=== PATIENT | female | born 1940 | race Caucasian/White ===

== ENCOUNTER 2017-03-08 06:17 | Day surgery (SDC) | payer MEDICARE ==
--- NOTE | 2017-03-04 16:38 | Pre-Procedure Note/Attestation ---
Pre-Procedure Note/Attestation Complete Prior to Procedure Planned Procedure: left Procedure Narrative: 1. CATARACT EXTRACTION WITH PHACO AND PC IOL IMPLANTATION, LEFT EYE. Indications for Procedure Pre-Operative Diagnosis: 1. CATARACT , LEFT EYE Attestation I attest that I discussed the nature of the procedure; its benefits; risks and complications; and alternatives (and the risks and benefits of such alternatives ), prior to the procedure, with the patient (or the patient's legal inventory representative). I attest that, if there was a reasonable possibility of needing a blood transfusion, the patient (or the patient's legal inventory representative) was given the [facility] standardized written summary, pursuant to the Mukesh Isaiah Blood Safety Act ([place] Health and Safety Code # 1645, as amended). I attest that I re-evaluated the patient just prior to the surgery and that there has been no change in the patient's H&P, except as documented below: DINESH RANKIN Mar 04, 2017 16:38
[2017-03-08] VITALS (8 sets, daily range): BP systolic 139–168; BP diastolic 83–99
[~2017-03-08] VITALS: Ht 144.8 cm; Wt 61.2 kg
[~2017-03-08 06:17] MED LIST: Akten 3.5% 1ml Btl ONE; Ketorolac Tromethamine Opth 5ml Soln ONE; Phenylephrine 10% Opth Soln 5ml ONE; Tropicamide 1% Opth 15ml Soln ONE; Vigamox Opth Soln 3ml ONE; acetaZOLAMIDE 125mg tab ORAL ONE
[2017-03-08] MEDS: Tropicamide 1% Opth 15ml Soln LEFT EYE SCH ×3 (06:49→07:07)
[2017-03-08] MEDS: Vigamox Opth Soln 3ml LEFT EYE SCH ×3 (06:49→07:07)
[2017-03-08] MEDS: Akten 3.5% 1ml Btl LEFT EYE SCH ×3 (06:49→07:07)
[2017-03-08] MEDS: Phenylephrine 10% Opth Soln 5ml LEFT EYE SCH ×3 (06:49→07:07)
[2017-03-08] MEDS: Ketorolac Tromethamine Opth 5ml Soln LEFT EYE SCH ×3 (06:50→07:07)
[2017-03-08] MEDS ORDERED: NKM (06:57)
[2017-03-08] MEDS ORDERED: NS Irrig 1000ml ONE (07:00)
[2017-03-08] MEDS ORDERED: Sterile Water Irrig 1000ml IRRIG ONE (07:00)
[2017-03-08] MEDS ORDERED: Dexamethasone 4mg/ml vial ONE (07:06)
[2017-03-08] MEDS ORDERED: Tetracaine 0.5% Opth 4ml Soln ONE (07:06)
[2017-03-08] MEDS ORDERED: Lidocaine 1% MPF 10mg/ml 5ml ONE ×2 (07:06→08:00)
[2017-03-08] MEDS ORDERED: BSS 500ml btl ONE (07:06)
[2017-03-08] MEDS ORDERED: Povidone-Iodine 5% opth solution ONE (07:07)
[2017-03-08] MEDS ORDERED: Carbachol 0.01% Op Soln 1.5ml vial ONE (07:07)
[2017-03-08] MEDS ORDERED: BSS 15ml BTL ONE (07:07)
[2017-03-08] MEDS ORDERED: EPINEPHrine 1mg/1ml Amp ONE (07:07)
[2017-03-08] MEDS ORDERED: Sodium Hyaluronate 10 mg/ml 0.85ml ONE (07:08)
[2017-03-08] MEDS ORDERED: LR 1000ml ONE (08:00)
[2017-03-08] MEDS ORDERED: DiphenhydrAMINE 50mg/ml Inj ONE (08:08)
--- NOTE | 2017-03-08 08:27 | Anethesia Preoperative Eval ---
Anesthesia Pre-op PMH/ROS General Date of Evaluation: Mar 08, 2017 Anesthesiologist: Deshawn ASA Score: ASA 2 Mallampati Score Class I : Soft palate, uvula, fauces, pillars visible Class II: Soft palate, uvula, fauces visible Class III: Soft palate, base of uvula visible Class IV: Only hard plate visible Mallampati Classification: Class II Surgeon: Chastity Diagnosis: Left cataract Surgical Procedure: Left cataract extraction with IOL Anesthesia History: none Family History: no anesthesia problems Allergies: Coded Allergies: PENICILLINS (Verified Allergy, Mild, 03/08/17) dizziness, vision turned black,fainting Medications: see eMAR Past Medical History Cardiovascular: Denies: HTN, CAD, CA, valve dz, arrhythmia, other Pulmonary: Denies: asthma, COPD, [place], other Gastrointestinal/Genitourinary: Reports: GERD, Denies: CRI, ESRD, other Endocrine: Denies: DM, hypothyroidism, steroids, other HEENT: Reports: cataract (L), Denies: cataract (R), glaucoma, [place] (L), [place] (R), other Hematology/Immune: Denies: anemia, DVT, bleeding disorder, other Musculoskeletal/Integumentary: Reports: OA, Denies: RA, DJD, DDD, edema, other PSxH Narrative: right breast cystectomy, ANDRES Anesthesia Pre-op Phys. Exam Physician Exam Last Vital Signs Date Time Temp Pulse Resp B/P (MAP) Pulse Ox O2 Delivery O2 Flow Rate FiO2 03/08/17 07:01 97.7 82 20 149/83 98 Room Air Constitutional: NAD Cardiovascular: RRR Respiratory: CTA Airway Exam Mallampati Score: Class II MO: full ROM: full Anesthesia Pre-op A/P Labs see chart Studies Pre-op Studies: EKG - sr Risk Assessment & Plan Assessment: ASA II Plan: MAC Status Change Before Surgery: No Pre-Antibiotics Drug: N/A LEONIDAS DELCID M.D. Mar 08, 2017 08:27
[2017-03-08] MEDS ORDERED: LR 1000ml 1,000 ML IVLG SCH (08:28)
--- NOTE | 2017-03-08 08:28 | Immediate Post-Op Evaluation ---
Immediate Post-Op Evalulation Immediate Post-Op Evalulation Procedure: Left cataract extraction with IOL Date of Evaluation: Mar 08, 2017 Time of Evaluation: 08:59 IV Fluids: 200 Blood Products: 0 Estimated Blood Loss: 0 Urinary Output: 0 Blood Pressure Systolic: 168 Blood Pressure Diastolic: 99 Pulse Rate: 85 Respiratory Rate: 16 O2 Sat by Pulse Oximetry: 99 Temperature (Fahrenheit): 98.1 Pain Score (1-10): 0 Nausea: No Vomiting: No Complications 0 Patient Status: awake, reacts, patent, none Hydration Status: adequate Drug: N/A LEONIDAS DELCID M.D. Mar 08, 2017 08:28
--- NOTE | 2017-03-08 08:28 | 48 Hour Post Anesthesia Eval ---
Post Anesthesia Evaluation Procedure: Left cataract extraction with IOL Date of Evaluation: Mar 08, 2017 Airway: patent Nausea: No Vomiting: No Pain Intensity: 0 Hydration Status: adequate Cardiopulmonary Status: at baseline Mental Status/LOC: patient returned to baseline Post-Anesthesia Complications: 0 Follow-up care needed: ready to discharge LEONIDAS DELCID M.D. Mar 08, 2017 08:28
[2017-03-08] MEDS ORDERED: DiphenhydrAMINE 50mg/ml Inj IVP PRN (08:30)
--- NOTE | 2017-03-08 08:59 | Discharge Summary ---
Discharge Summary Discharge Summary Discharge Summary DATE OF ADMISSION: 03/08/2017 DATE OF DISCHARGE: 03/08/2017 REASON FOR HOSPITALIZATION: Cataract, left eye SURGERY PERFORMED: Cataract extraction with phaco and PC IOL implantation, left eye CONDITION IN THE HOSPITAL:The patient tolerated the surgery without complications. DISCHARGE CONDITION: The patient was stable at discharge. DISCHARGE MEDICATIONS: 1. Vigamox eye drops one drop q.i.d, OS 2. Prednisolone one drop q.i.d, OS 3. Prolenza, qd, left eye POSTOPERATIVE ORDERS: The patient has to rest at home. No bending, No lifting, No watching Television tonight. POSTOPERATIVE FOLLOW UP: The patient will be followed in my office tomorrow morning at 7 o'clock. DINESH RANKIN Mar 08, 2017 08:59
--- NOTE | 2017-03-08 09:01 | Brief Operative Note ---
Immediate Post Operative Note Operative Note Chief Complaint: Blurry left eye, difficulty drivindg and reading Pre-op Diagnosis: 1. CATARACT , LEFT EYE Procedure: Cataract extraction with phaco and PC IOL implantation, left eye Post-op Diagnosis: same as pre-op Surgeon: Dinesh Haywood MD. Manager Patient: None Additional Surgeons: None Anesthesiologist: Dr. Hess Anesthesia: MAC Specimen: none Complications: none Condition: stable Fluids: 500ml Estimated Blood Loss: none Drains: none Implant(s) used?: Yes - Monofocal PC IOL implanted in the left eye without complication DINESH HAYWOOD Mar 08, 2017 09:01
--- NOTE | 2017-03-09 00:47 | Operative Note - Dictated ---
DATE OF OPERATION: 03/08/2017 FACILITY: [facility]. SURGEON: Jose Haywood M.D. MANAGER CONTENT: None. ANESTHESIOLOGIST: Dr. Hess. ANESTHESIA: Monitored anesthesia care (MAC). PREOPERATIVE DIAGNOSIS: Cataract, left eye. POSTOPERATIVE DIAGNOSIS: Cataract, left eye. SURGERY PERFORMED: Cataract extraction and phacoemulsification of posterior chamber intraocular lens implantation in the left eye. INDICATION FOR SURGERY: The patient is a 76-year-old lady with history of hypertension, hypercholesterolemia, interstitial lung fibrosis, anemia, osteopenia, thyroid neoplasm, and diabetes mellitus. The patient is stating she is allergic to penicillin. The patient is not a smoker and does not drink. The patient is complaining of blurry vision in the left eye. On examination of the left eye, the cornea is clear. Anterior chamber is clean and quiet. Pupillary reflex is normal. There is no RAPD. There is 3+ nuclear sclerosis and 2+ cortical cataract. Funduscopy shows normal optic disc, normal macula, and periphery retina is flat. To improve her vision in the left eye, the cataract has to be removed and posterior chamber intraocular lens has to be implanted. INFORMED CONSENT: The nature of the surgery, risks, benefits, alternatives, and potential complications were explained all in detail to the patient. The potential complications including, but not limited to bleeding, infection, posterior capsular rupture, lens subluxation, flat anterior chamber, iris prolapse, uveitis, corneal edema, macular edema, endophthalmitis, retinal detachment, loss of vision, and even loss of the eye were all explained in detail to the patient, who voiced understanding and accepted all the complications. All the complications were explained to the patient in her language, Farsi. The alternatives including accommodating lenses, multifocal lenses, toric lenses, and conventional cataract surgery with limbal relaxing incision (LRI) for treatment of astigmatism were all explained in detail to the patient, who voiced understanding. The patient elected to have only conventional cataract surgery with limbal relaxin incision for treatment of astigmatism. Then, she signed the consent form, which is in the chart. DESCRIPTION OF SURGERY AND FINDINGS: Following that, the patient was taken to the operation room in stable condition. Lidocaine gel, Akten 3.5% were applied to the conjunctiva of the left eye. IV sedation was given by the anesthesiologist, Dr. Hess. After adequate anesthesia and sedation had been achieved, the left eye was prepped and draped in the sterile fashion for intraocular surgery. Following that, a speculum was placed in the left eye. Following that, using a Super Sharp knife, a clear corneal side port was created. A 1% lidocaine without preservative (MPF) was injected into the anterior chamber. The viscoelastic agent, Healon was injected into the anterior chamber. Following that, using a 2.8 mm keratome, a temporal clear corneal keratotomy was performed. Following that, a clear fresh viscoelastic agent, Healon was injected into the anterior chamber again. Under the viscoelastic agent, an anterior capsulotomy was performed in the fashion of capsulorrhexis beautifully. Following that, all viscoelastic agent was removed from the anterior chamber. Following that, using a balanced salt solution, hydrodissection and hydrodelineation was performed and the nucleus was freed. Following that, a clear fresh Healon was injected into the anterior chamber to protect the endothelium of the cornea. Following that, using a phacoemulsification machine in the fashion of horizontal chop, the nucleus was removed in toto. Following that, using irrigation aspiration unit, the cortical material was removed from the capsular bag and the capsular bag was polished. Following that, the capsular bag was filled with viscoelastic agent, Healon. Following that, a +17.5 diopter ZCB00 foldable PCIOL with serial number [id number] was inserted into the capsular bag. Using a Sinskey hook, the lens was manipulated and put in the proper position. Following that, the viscoelastic agent was removed from the anterior and posterior part of the lens and the anterior chamber was filled with balanced salt solution. Following that, the wounds were hydrated with balanced salt solution and the wound was checked for leakage and there was no leakage. Vigamox eye drops were applied to the conjunctiva of the left eye. The patient tolerated the surgery without complications. At the end of the surgery, the eye was patched with a clear sterile fenestrated shield. Following that, the patient was transferred to the recovery room. In the recovery room, 125 mg of Diamox was given by mouth stat. Postoperative orders and directions were given to the patient. The patient will be discharged home upon stabilization. The patient will be followed in my office tomorrow morning at 9 o'clock. Jose Haywood M.D. DR: VICKEY JOB#: [id number] CC:
== END 2017-03-08 10:10 | disposition home or self-care (01) ==
LOC: SUR 06:17
DX: H25.12 Age-related nuclear cataract, left eye (principal); H25.012 Cortical age-related cataract, left eye; I10 Essential (primary) hypertension; E78.00 Pure hypercholesterolemia, unspecified; J84.10 Pulmonary fibrosis, unspecified; E11.9 Type 2 diabetes mellitus without complications; M85.80 Other specified disorders of bone density and structure, unspecified site; K21.9 Gastro-esophageal reflux disease without esophagitis; Z88.0 Allergy status to penicillin; M19.90 Unspecified osteoarthritis, unspecified site
CPT/HCPCS: 66984; J0171; J1100; J1200; J7120; V2632; 94003; 94150